=== PATIENT | female | born 1990 | race Caucasian/White ===

== ENCOUNTER 2019-10-27 09:35 | Emergency (ER) | payer OTHER, SELFPAY ==
[2019-10-27 09:50] VITALS: BP 136/83; PULSE 132; RESP 20; TEMP 37.2; O2SAT 96
--- NOTE | 2019-10-27 10:00 | ED_ITS ---
HPI - Allergic Reaction General Chief complaint: Allergic Reaction Stated complaint: hives Source: patient and family History of Present Illness HPI narrative: This is a 29-year-old female with a history of hives, has been Benadryl and prednisone has currently run out of her prednisone and is scheduled to see an tufting machine operator single needle in 1 week. Patient presents with some diffuse hives with mild shortness of breath with no audible wheezing no nausea or vomiting no abdominal pain, no fever or chills no diarrhea constipation no chest pain or chest tightness. MD complaint: allergic reaction and hives Onset (ago): hour(s) Exposure: unknown Symptoms: rash and itching Severity: moderate Treatment prior to arrival: benadryl Related Data Home Medications Medication Instructions Recorded Confirmed albuterol sulfate [ProAir HFA] 2 puff INHALATION DIRECTED PRN 10/27/19 10/27/19 Allergies Allergy/AdvReac Type Severity Reaction Status Date / Time No Known Allergies Allergy Unverified 04/06/19 14:25 Review of Systems Review of Systems: All systems reviewed & are unremarkable except as noted in HPI and below PMFSH Past Medical History Medical History Urticaria Surgical History Surgical History History of Social History Social History Smoking status: Current every day smoker Alcohol intake: never Substance use: never Exam Const: General: no acute distress and alert HENMT: Head: normal to inspection Eyes: Conjunctivae: conjunctivae normal Pupils: Equal, round and reactive pupils present Neck: Neck: normal visual inspection and no lymphadenopathy Chest: Chest palpation & inspection: normal inspection of the chest Resp: Effort & Inspection: normal respiratory effort Cardio: Rhythm: regular rhythm GI: GI Palp: Yes Soft to palpation Back/Spine/Pelvis: Back: no CVA tenderness Skin: Other: diffuse urticaria with itching Neuro: General: patient oriented x3 and moves all extremities Extrem: General: normal to inspection Psych: Affect: normal affect Critical Care Time Critical Care Time Critical Care Time: No Discharge Plan Discharge Clinical Impression: Urticaria Allergic reaction Qualifiers: Encounter type: subsequent encounter Qualified Code(s): T78.40XD - Allergy, unspecified, subsequent encounter Patient Disposition: Home, Self-Care Condition: Stable Instructions: Urticaria (ED), General Allergic Reaction (ED), Antibiotic Form Additional Instructions: take medicine as prescribed and follow-up with the tufting machine operator single needle as scheduled Prescriptions: New prednisone 20 mg tablet 20 mg PO DAILY Qty: 14 RF: 0 No Action albuterol sulfate [ProAir HFA] 90 mcg/actuation HFA aerosol inhaler 2 puff INHALATION DIRECTED PRN (Reason: Shortness Of Breath Or Wheezing) RF: 0 Follow-up/Referrals: PHYSICIAN NOT ON STAFF,NONSTAFF [Primary Care Provider] - Stand Alone Forms: Work/School Release IP Time of Disposition: 10:05
[2019-10-27] MEDS: LORATADINE 10 MG TABLET PO (10:16)
[2019-10-27] MEDS: methylPREDNISolone ACETATE 40 MG/ML VIAL 80 MG IM (10:16)
[2019-10-27 10:27] VITALS: BP 134/82; PULSE 120; RESP 20; TEMP 37.2; O2SAT 98
== END 2019-10-27 10:32 | disposition home or self-care (01) ==
PROVIDERS: Emergency Provider Emergency Medicine
DX: L50.9 Urticaria, unspecified (principal); T78.40XD Allergy, unspecified, subsequent encounter
CPT/HCPCS: 96372; 99283; A9270; J1030